=== PATIENT | male | born 1985 | race American Indian/Alaskan Native ===

== ENCOUNTER 2016-09-23 21:36 | Emergency (ER) | payer OTHER ==
[2016-09-23 22:50] VITALS: BP 143/77
--- NOTE | 2016-09-23 23:56 | Emergency Department Report ---
- General Chief Complaint: Fever Stated Complaint: FEVER,DIARRHEA,NAUSEA Time Seen by Provider: 09/23/16 23:12 Source: patient Mode of arrival: Ambulatory Limitations: No Limitations - History of Present Illness Initial Comments: This is a 30-year-old male that presents with productive cough, fever, and nausea or vomiting for one week. Patient stated he had a fever at home about one hour ago and took Aleve which subsided his fever. Patient denies abdominal pain, chest pain, shortness breath, headache, sore throat, ear pain, numbness tingling, or difficulty breathing. Patient is well-nourished. No signs of distress noted. Patient is not intoxicated or ill in appearance. MD Complaint: fever, cough -: Gradual, week(s) (1) Severity: mild Severity scale (0 -10): 0 Consistency: constant Improves With: NSAID (Aleve) Context: sick contacts (daughter) Associated Symptoms: fever, nasal congestion, cough, nausea, vomiting, diarrhea. denies: chills, myalgias, diaphoresis, headache, rhinorrhea, stiff neck, chest pain, shortness of breath, abdominal pain, rash, confusion, right sweats, weight loss, epistaxis, hoarseness, ear pain Treatments Prior to Arrival: other (Aleve) - Related Data Previous Rx's Medication Instructions Recorded Last Taken Type Amoxicillin/K Clav Tab [Augmentin 1 tab PO Q12HR 10 Days 09/23/16 Unknown Rx 875 mg] Allergies Allergy/AdvReac Type Severity Reaction Status Date / Time No Known Allergies Allergy Unverified 09/23/16 22:50 ED Review of Systems ROS: Stated complaint: FEVER,DIARRHEA,NAUSEA Other details as noted in HPI Constitutional: denies: chills, fever Eyes: denies: eye pain, eye discharge, vision change ENT: as per HPI. denies: ear pain, throat pain Respiratory: see HPI, cough. denies: orthopnea, shortness of breath, SOB with exertion, SOB at rest, stridor, wheezing Cardiovascular: denies: chest pain, palpitations Endocrine: no symptoms reported Gastrointestinal: denies: abdominal pain, nausea, diarrhea Genitourinary: denies: urgency, dysuria Musculoskeletal: denies: back pain, joint swelling, arthralgia Skin: denies: rash, lesions Neurological: denies: headache, weakness, paresthesias Psychiatric: denies: anxiety, depression Hematological/Lymphatic: denies: easy bleeding, easy bruising ED Past Medical Hx - Past Medical History Previous Medical History?: No - Surgical History Past Surgical History?: No - Social History Smoking Status: Current Every Day Smoker Substance Use Type: None - Medications Home Medications: Home Medications Medication Instructions Recorded Confirmed Last Taken Type Amoxicillin/K Clav Tab [Augmentin 1 tab PO Q12HR 10 Days 09/23/16 Unknown Rx 875 mg] ED Physical Exam - General Limitations: No Limitations General appearance: alert, in no apparent distress - Head Head exam: Present: atraumatic, normocephalic - Eye Eye exam: Present: normal appearance, PERRL, EOMI - ENT ENT exam: Present: normal exam, normal orophraynx, mucous membranes moist, TM's normal bilaterally - Neck Neck exam: Present: normal inspection, full ROM. Absent: tenderness, meningismus, lymphadenopathy - Respiratory Respiratory exam: Present: normal lung sounds bilaterally. Absent: respiratory distress, wheezes, rales, rhonchi, stridor - Cardiovascular Cardiovascular Exam: Present: regular rate, normal rhythm. Absent: systolic murmur, diastolic murmur, rubs, gallop - GI/Abdominal GI/Abdominal exam: Present: soft, normal bowel sounds. Absent: distended, tenderness, guarding, rebound, rigid - Rectal Rectal exam: Present: deferred - Extremities Exam Extremities exam: Present: normal inspection, full ROM, normal capillary refill. Absent: tenderness, pedal edema, joint swelling - Back Exam Back exam: Present: normal inspection, full ROM. Absent: tenderness, CVA tenderness (R), CVA tenderness (L) - Neurological Exam Neurological exam: Present: alert, oriented X3, CN II-XII intact, normal gait - Psychiatric Psychiatric exam: Present: normal affect, normal mood - Skin Skin exam: Present: warm, dry, intact, normal color. Absent: rash ED Course Vital Signs 09/23/16 22:43 Temperature 97.4 F L Pulse Rate 77 Respiratory 18 Rate Blood Pressure 143/77 Blood Pressure 143/77 [Left] O2 Sat by Pulse 100 Oximetry ED Medical Decision Making - Medical Decision Making ED course: This is a 30-year-old male that presents with upper respiratory infection for one week 1- due to my clinical exam patient is discharged with Augmentin 875 for 10 days. I instructed the patient to finish full course of antibiotics as prescribed. 2- I also notified patient to follow-up with his primary care doctor in 3-5 days or if symptoms worsen. 3- at the time of discharge the patient does not seem toxic or ill in appearance. No signs of distress noted. 4- is currently present and daughter. stated is driving the patient home. 5- patient agrees to discharge treatment and plan. No further questions noted by the patient. Critical care attestation.: If time is entered above; I have spent that time in minutes in the direct care of this critically ill patient, excluding procedure time. ED Disposition Clinical Impression: Upper respiratory infection Qualifiers: URI type: unspecified URI Qualified Code(s): J06.9 - Acute upper respiratory infection, unspecified Disposition: DISCHARGED TO HOME OR SELFCARE Is pt being admited?: No Does the pt Need Aspirin: No Condition: Stable Instructions: Upper Respiratory Infection (ED) Additional Instructions: Follow-up with a primary care doctor and 3-5 days or if symptoms worsen report back to emergency rooms/primary care doctor. Take full course and the bars as prescribed Continue taking [id number] acetaminophen/NSAID if fever persists Prescriptions: Amoxicillin/K Clav Tab [Augmentin 875 mg] 1 tab PO Q12HR 10 Days Referrals: PRIMARY CARE, [Primary Care Provider] - 3-5 Days Forms: Work/School Release Form(ED)
== END 2016-09-24 00:26 | disposition home or self-care (01) ==
LOC: ED 21:36
DX: J06.9 Acute upper respiratory infection, unspecified (principal); F17.200 Nicotine dependence, unspecified, uncomplicated
CPT/HCPCS: 99282